=== PATIENT | female | born 1960 | race African-American/Black ===

== ENCOUNTER 2025-03-11 16:13 | Inpatient (IN) | payer MEDICAID ==
[~2025-03-11] VITALS: Ht 154.9 cm; Wt 131.3 kg
[~2025-03-11 16:13] MED LIST: GENOVIA; OXYCODONE
--- NOTE | 2025-03-11 16:28 | ED.PDOC ---
SOB-HPI HPI Comments 64y F who presents to the ED via EMS for chief complaint of shortness of breath. EMS states pt was called to the scene after pt was having shortness of breath for the past 1x week with exacerbation of her flu-like symptoms including cough, congestion with green phlegm, fever and chills. Pt called after pt despite using her home nebulizer, pt was still short of breath. EMS arrived on scene and noted pt had vitals checked which noted pt 02 sat of 89% on room air and pt was given breathing treatment and placed on supplemental 02 and brought to the ED. Pt now in the ED, has noted 02 sat of 98% on 02 with duo neb treatment currently occuring. Pt in the ED,states she also also been having diarrhea. Pt in the ED, otherwise denies any other symptoms at this time. 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 CLERK Hx Family History Family History: Family hx of DM, Family hx of heart suzi Social History Smoker: Cigarettes Alcohol: Occasionally Drugs: Denies Drug Use Lives In: Home Constitutional: reports: fever; denies: chills, diaphoresis, fatigue, malaise, sweats, weakness, others EENTM: denies: blurred vision, double vision, ear bleeding, ear discharge, ear drainage, ear pain, ear ringing, eye pain, eye redness, hearing loss, mouth pain, mouth swelling, nasal discharge, nose bleeding, nose congestion, nose pain, photophobia, tearing, throat pain, throat swelling, voice changes, others Respiratory: reports: cough, shortness of breath; denies: hemoptysis, orthopnea, SOB at rest, SOB with excertion, stridor, wheezing, others Cardiovascular: denies: chest pain, dizzy spells, diaphoresis, Dyspnea on exertion, edema, irregular heart beat, left arm pain, lightheadedness, palpitations, PND, syncope, others Gastrointestinal: reports: diarrhea; denies: abdomen distended, abdominal pain, blood streaked bowels, constipated, dysphagia, difficulty swallowing, hematemesis, melena, nausea, poor appetite, poor fluid intake, rectal bleeding, rectal pain, vomiting, others Genitourinary: denies: abnormal vagina bleeding, burning, dyspareunia, dysuria, flank pain, frequency, hematuria, incontinence, pain, , vagina discharge, urgency, others Neurological: denies: dizziness, fainting, headache, left sided numbness, left sided weakness, numbness, paresthesia, pre-existing deficit, right sided numbness, right sided weakness, seizure, speech problems, tingling, tremors, weakness, others Musculoskeletal: denies: back pain, gout, joint pain, joint swelling, muscle pain, muscle stiffness, neck pain, others Integumetry: denies: bruises, change in color, change in hair/nails, dryness, laceration, lesions, lumps, rash, wounds, others Allergic/Immunocompromised: denies: Difficulty Healing, Frequent Infections, Hives, Itching, others Hematologic/Lymphatic: denies: anemia, blood clots, easy bleeding, easy bruising, swollen glands, others Endocrine: denies: excessive hunger, excessive sweating, excessive thirst, excessive urination, flushing, intolerance to cold, intolerance to heat, unexplained weight gain, unexplained weight loss, others Psychiatric: denies: anxiety, bipolar disorder, depression, hopeless, panic disorder, schizophrenia, sleepless, suicidal, others All Other Systems: Reviewed and Negative Physical Exam General Appearance: Moderate Distress HEENT: Normal ENT Inspection, Pharynx Normal, TMs Normal Neck: Full Range of Motion, Non-Tender, Normal, Normal Inspection Respiratory: Chest Non-Tender, Decreased Breath Sounds, No Accessory Muscle Use, Respiratory Distress, Wheezing Cardiovascular: No Edema, No JVD, No Murmur, No Gallop, Normal Peripheral Pulses, Regular Rate/Rhythm Breast Exam: Deferred Gastrointestinal: No Organomegaly, No Pulsatile Mass, Normal Bowel Sounds, Soft, Suprapubic, Tenderness Genitalia: Deferred Pelvic: Deferred Rectal: Deferred Extremities: No calf tenderness, Normal capillary refill, Normal inspection, Normal range of motion, Non-tender, No pedal edema Musculoskeletal : Apperance: Normal Neurologic: Alert, priest II-XII nml as Tested, Motor Weakness, Normal Affect, Normal Mood, No Sensory Deficits Cerebellar Function: Normal Reflexes: Normal Skin: Dry, Normal Color, Warm Lymphatic: No Adenopathy Was a procedure done? Was a procedure done?: No Differential Dx Differential Diagnosis: Bronchitis, CHF, COPD, Myocardial infarction, Pneumonia, Respiratory Distress, Pharyngitis, URI Comments Influenza A and B, COVID X-Ray, Labs, Meds, VS Vital Signs Date Time Temp Pulse Resp B/P (MAP) Pulse Ox O2 Delivery O2 Flow Rate FiO2 03/11/25 16:55 97.8 94 19 109/73 (85) 96 97.8 03/11/25 16:50 94 19 96 Room Air* 2 N/A Nasal Cannula* 03/11/25 16:42 20 93 Nasal Cannula* 3 32 03/11/25 16:23 98.0 98 24 115/81 98 98.0 Lab Test 03/11/25 18:05 03/11/25 17:40 03/11/25 17:25 03/11/25 16:34 Range/Units Influenza Type A Antigen Negative Negative Influenza Type B Antigen Negative Negative SARS-CoV-2 Antigen (Rapid) Negative NEGATIVE Urine Color Light-brown Yellow Urine Clarity Ex.turbid Clear Urine pH 7.0 5.0-9.0 Urine Specific [place] 1.022 1.001-1.035 Urine Protein Trace H Negative Urine Ketones Negative Negative Urine Blood 1+ H Negative /uL Urine Nitrite Negative Negative Urine Bilirubin Negative Negative Urine Urobilinogen Normal Negative mg/dL Urine Leukocyte Esterase 3+ Negative /uL Urine RBC 124 0 - 4 /hpf Urine WBC Clumps Present None Seen /hpf Urine Microscopic WBC 1400 H 0-5 /HPF Urine Squamous Epithelial Cells Few <5 /hpf Urine Bacteria None seen None Seen /hpf Urine Yeast (Budding) Loaded None Seen /hpf Urine Glucose 4+ H Normal mg/dL Troponin I High Sensitivity < 3 L < 3 L </=34 ng/L White Blood Count 8.4 4.4-10.8 10^3/uL Red Blood Count 5.23 H 4.0-5.20 10^6/uL Hemoglobin 16.7 H 12.2-16.2 g/dL Hematocrit 51.0 H 36.0-46.0 % Mean Corpuscular Volume 97.4 80.0-100.0 fL Mean Corpuscular Hemoglobin 31.8 28.0-32.0 pg Mean Corpuscular Hemoglobin Concent 32.7 32.0-36.0 g/dL Red Cell Distribution Width 14.5 H 11.8-14.3 % Platelet Count 234 140-450 10^3/uL Mean Platelet Volume 6.7 L 6.9-10.8 fL Neutrophils (%) (Auto) 62.4 37.0-80.0 % Lymphocytes (%) (Auto) 26.7 10.0-50.0 % Monocytes (%) (Auto) 8.8 0.0-12.0 % Eosinophils (%) (Auto) 1.6 0.0-7.0 % Basophils (%) (Auto) 0.5 0.0-2.0 % Neutrophils # (Auto) 5.2 1.6-8.6 10 ^3/uL Lymphocytes # (Auto) 2.2 0.4-5.4 10 ^3/uL Monocytes # (Auto) 0.7 0-1.3 10 ^3/uL Eosinophils # (Auto) 0.1 0-0.8 10 ^3/uL Basophils # (Auto) 0 0-0.2 10 ^3/uL Nucleated Red Blood Cells 0.0 % Sodium Level 135 L 136-145 mmol/L Potassium Level 4.6 3.5-5.1 mmol/L Chloride Level 102 98-107 mmol/L Carbon Dioxide Level 25 20-31 mmol/L Anion Gap 8 5-15 Blood Urea Nitrogen 8 L 9-23 mg/dL Creatinine 0.86 0.550-1.02 mg/dL Glomerular Filtration Rate Calc 75 >90 mL/min BUN/Creatinine Ratio 9.3 L 10.0-20.0 Serum Glucose 98 74-106 mg/dL Lactic Acid Level 1.2 0.4-2.0 mmol/L Calcium Level 9.7 8.7-10.4 mg/dL B-Type Natriuretic Peptide 5.34 0-100 pg/mL Current Medications Medications (Trade) Dose Ordered Sig/Katja Route Start Time Stop Time Status Last Admin Methylprednisolone Sodium Succinate (Solu Medrol) 125 mg ONCE ONCE IV 03/11/25 16:30 03/11/25 16:31 DC 03/11/25 17:47 Ipratropium Maxie (Atrovent Medneb) 1 mg ONCE ONCE N 03/11/25 16:30 03/11/25 16:31 DC 03/11/25 16:42 Albuterol (Ventolin Medneb) 10 mg ONCE ONCE N 03/11/25 16:30 03/11/25 16:31 DC 03/11/25 16:42 [facility] PROCEDURE(s): CXRP - CHEST PORTABLE IMPRESSION: Mild pulmonary vascular congestion. IV Hep-Lock was established. The patient was given Solu-Medrol 125 mg IV push The patient will also be given Lasix 40 mg IV push for the pulmonary vascular congestion The patient was given a continuous breathing treatment of albuterol and Atrovent. The lactic acid level is within normal limits. The patient's CBC is within normal limits The chemistry panel also is within normal limits The patient's urine test is positive for a significant UTI At this time, the patient is being admitted For the UTI, the patient was started on Levaquin IV piggyback Images Reviewed?: Images reviewed and evaluated by me Time of 1ST Reevaluation: 17:00 Reevaluation 1ST: Unchanged Patient Education/Counseling: Diagnosis, Treatment, Prognosis Family Education/Counseling: No Family Present SEPSIS Sepsis Screen Physician Orders Med Neb Initial Treatment (03/11/25 16:19) Chest Portable (03/11/25 16:19) Heplock Iv (03/11/25 16:19) Pulse Oximetry (03/11/25 16:19) Oxygen (03/11/25 16:19) Insurance Policy Issue Clerk (03/11/25 16:19) Blood Pressure (03/11/25 16:19) Electrocardigram (03/11/25 16:19) Blood Culture (03/11/25 16:19) Troponin-I Hs (03/11/25 19:19) Electrocardigram (03/11/25 17:19) Electrocardigram (03/11/25 19:19) Vital Signs Date Time Temp Pulse Resp B/P (MAP) Pulse Ox O2 Delivery O2 Flow Rate FiO2 03/11/25 16:55 97.8 94 19 109/73 (85) 96 97.8 03/11/25 16:50 94 19 96 Room Air* 2 N/A Nasal Cannula* 03/11/25 16:42 20 93 Nasal Cannula* 3 32 03/11/25 16:23 98.0 98 24 115/81 98 98.0 Laboratory Tests Test 03/11/25 16:34 Lactic Acid Level 1.2 mmol/L (0.4-2.0) White Blood Count 8.4 10^3/uL (4.4-10.8) Medications Medications Dose Ordered Sig/Katja Route Start Time Stop Time Status Last Admin Dose Admin Albuterol 10 mg ONCE ONCE [facility] 03/11/25 16:30 03/11/25 16:31 DC 03/11/25 16:42 Ipratropium Maxie 1 mg ONCE ONCE [facility] 03/11/25 16:30 03/11/25 16:31 DC 03/11/25 16:42 Methylprednisolone Sodium Succinate 125 mg ONCE ONCE IV 03/11/25 16:30 03/11/25 16:31 DC 03/11/25 17:47 Departure 1 Departure Time of Disposition: 18:57 Impression: Primary Impression: Acute respiratory distress Additional Impressions: UTI (urinary tract infection) Qualified Codes: N30.00 - Acute cystitis without hematuria COPD exacerbation Disposition: ADMITTED INPATIENT [facility]mit to: [facility] Condition: Fair Critical Care Note Critical Care Time?: Yes (45 min-critical care time only) Stability Stability form required: Yes Unstable for transfer: Telemetry monitoring (Telemetry monitoring required), ED Physician Assesment (Clinical assesment) Heart Score Heart Score: Heart Score Response (Comments) Value History N/A 0 EKG N/A 0 Age N/A 0 Risk Factors N/A 0 Troponin N/A 0 Total 0 I personally scribed for JOÃO SIMS MD ([email or web address]) on 03/11/25 at 16:28. Electronically submitted by Alirio Knox ([email or web address]). I personally scribed for JOÃO SIMS MD ([email or web address]) on 03/11/25 at 17:44. Electronically submitted by Alirio Knox ([email or web address]). JOÃO SIMS MD Mar 11, 2025 16:28
[2025-03-11] MEDS: IPRATROPIUM BROM 0.5 MG/2.5ML INH SOL HHN ONE (16:42)
[2025-03-11] MEDS: ALBUTEROL SULF 2.5 MG/0.5ML(0.5%) NEB SOLN HHN ONE (16:42)
[2025-03-11 16:50] VITALS: PULSE 94; RESP 19; O2SAT 96
[2025-03-11 17:07] LABS: Hematocrit 51.0 % (36.0-46.0); Hemoglobin 16.7 g/dL (12.2-16.2); Mean Corpuscular Hemoglobin 31.8 pg (28.0-32.0); Mean Corpuscular Volume 97.4 fL (80.0-100.0); Nucleated Red Blood Cells % 0.0 %
[2025-03-11 17:14] LABS: Chloride 102 mmol/L (98-107); Potassium 4.6 mmol/L (3.5-5.1)
[2025-03-11 17:15] LABS: Anion Gap 8 (5-15); Calcium 9.7 mg/dL (8.7-10.4); Carbon Dioxide 25 mmol/L (20-31)
--- NOTE | 2025-03-11 17:15 | DVH ---
CHEST RADIOGRAPH INDICATION: sob TECHNIQUE: Single frontal view of the chest was obtained COMPARISON: None FINDINGS: Lines and Tubes: None Lungs: No focal consolidation. Mild interstitial prominence. Pleura: No effusion. No pneumothorax. Cardiomediastinal contours: borderline cardiomegaly Bones: No acute osseous abnormality. IMPRESSION: Mild pulmonary vascular congestion.
[2025-03-11 17:20] LABS: BUN/Creatinine Ratio 9.3 (10.0-20.0); Glucose 98 mg/dL (74-106)
[2025-03-11 17:26] LABS: Blood Urea Nitrogen 8 mg/dL (9-23); Sodium 135 mmol/L (136-145)
[2025-03-11] MEDS: methylPREDNISolone SOD SUCC 125 MG/2 ML VL IV ONE (17:47)
[2025-03-11 18:24] LABS: Urine Budding Yeast LOADED /hpf (None Seen); Urine Protein, UAD TRACE (Negative); Urine WBC Clumps PRESENT /hpf (None Seen)
[2025-03-11 18:37] LABS: COVID19 ANTIGEN SOFIA FIA NEGATIVE (NEGATIVE)
[2025-03-11] MEDS ORDERED: DOXYCYCLINE 100MG/100ML 100 ML IV SCH (19:45)
[2025-03-11] MEDS ORDERED: ACETAMINOPHEN 325 MG TAB PO ONE (19:45)
[2025-03-11] MEDS: MORPHINE SULFATE 4 MG/ML SYR/VIAL IV ONE (19:48)
[2025-03-11] MEDS: ONDANSETRON HCL 4 MG/2 ML VIAL IV ONE (19:49)
--- NOTE | 2025-03-11 19:55 | DVHHPRES ---
History of Present Illness Resident Creating Document: RENE ROJO RESIDENT History of Present Illness 64-year-old female with past medical history of asthma, COPD, questionable CHF, stroke, diabetes mellitus, hyperlipidemia and hypertension presented with complaints of shortness of breath. Patient mentioned that for past one week she had flu-like symptoms initially that included cough, fever, chills. And for last few days patient can not lay flat because of shortness of breath. She does not use oxygen at home. She describes cough as fat, with greenish colored sputum. Patient uses nebulizer at home and despite using nebulizer 2 times every 15 minutes she did not have improvement in his symptoms that prompted her to come to the ED. She also mentioned chest pressure as someone sitting on her chest, pressure-like, radiating to jaw, not radiating to arms. She also mentioned of epigastric pain and bruise on the left flank. She denied any recent trauma. Patient mentioned associated headache. She also denied any complaints of fever today. Past medical history Asthma, COPD, questionable CHF, stroke, diabetes mellitus, hyperlipidemia and hypertension Past surgical history No recent surgery Family history History of diabetes and heart disease, hypertension, CKD Social history Patient smokes 2-5 cigarettes a day for last 10 years, quit one week ago Denied alcohol, marijuana or any other drug intake Lives with caregiver Medication history Hydroxyzine Gabapentin Omeprazole Simvastatin Benazepril Aspirin Oxycodone Potassium chloride Hydrochlorothiazide Jardiance Ozempic Duloxetine Magnesium oxide Allergic history Acetaminophen Hydrocodone Nuts Review of Systems Review of Systems As described in the HPI Allergies: Coded Allergies: Codeine (Verified Allergy, Severe, 03/12/25) [place] Hydrocodone (Verified Allergy, Severe, 02/28/15) Uncoded Allergies: NUTS (Allergy, Unknown, 02/28/15) Medications Current Medications Medications Dose Ordered Sig/Katja Route Start Time Stop Time Status Last Admin Dose Admin Methylprednisolone Sodium Succinate 40 mg BID IV 03/11/25 22:00 Albuterol 2.5 mg Q4HPRN PRN NEB 03/11/25 19:45 Ipratropium [place] 0.5 mg Q4HPRN PRN NEB 03/11/25 19:45 Ceftriaxone Sodium 50 ml @ 100 mls/hr DAILY@09 IV 03/12/25 09:00 Doxycycline Hyclate 100 ml @ 50 mls/hr Q12H IV 03/11/25 19:45 Exam Vital Signs Vital Signs Date Time Temp Pulse Resp B/P (MAP) Pulse Ox O2 Delivery O2 Flow Rate FiO2 03/11/25 19:48 103 21 111/80 03/11/25 18:55 94 03/11/25 16:55 97.8 97.8 03/11/25 16:50 Room Air* 2 N/A Nasal Cannula* Exam Examination General Appearance: Alert, Oriented X3, Cooperative, No acute distress HEENT: EOMI Respiratory: Bilateral expiratory wheezes Cardiovascular: Regular rate, Normal S1, Normal S2 Abdominal: Normal bowel sounds Extremities: No cyanosis, No edema, Normal pulses, No tenderness/swelling Skin: No rashes, No breakdown Neuro: Normal speech and tone Labs/Xrays Labs Test 03/11/25 19:48 03/11/25 18:05 03/11/25 17:40 03/11/25 16:34 Range/Units Influenza Type A Antigen Negative Negative Influenza Type B Antigen Negative Negative SARS-CoV-2 Antigen (Rapid) Negative NEGATIVE Urine Color Light-brown Yellow Urine Clarity Ex.turbid Clear Urine pH 7.0 5.0-9.0 Urine Specific [place] 1.022 1.001-1.035 Urine Protein Trace H Negative Urine Ketones Negative Negative Urine Blood 1+ H Negative /uL Urine Nitrite Negative Negative Urine Bilirubin Negative Negative Urine Urobilinogen Normal Negative mg/dL Urine Leukocyte Esterase 3+ Negative /uL Urine RBC 124 0 - 4 /hpf Urine WBC Clumps Present None Seen /hpf Urine Microscopic WBC 1400 H 0-5 /HPF Urine Squamous Epithelial Cells Few <5 /hpf Urine Bacteria None seen None Seen /hpf Urine Yeast (Budding) Loaded None Seen /hpf Urine Glucose 4+ H Normal mg/dL White Blood Count 8.4 4.4-10.8 10^3/uL Red Blood Count 5.23 H 4.0-5.20 10^6/uL Hemoglobin 16.7 H 12.2-16.2 g/dL Hematocrit 51.0 H 36.0-46.0 % Mean Corpuscular Volume 97.4 80.0-100.0 fL Mean Corpuscular Hemoglobin 31.8 28.0-32.0 pg Mean Corpuscular Hemoglobin Concent 32.7 32.0-36.0 g/dL Red Cell Distribution Width 14.5 H 11.8-14.3 % Platelet Count 234 140-450 10^3/uL Mean Platelet Volume 6.7 L 6.9-10.8 fL Neutrophils (%) (Auto) 62.4 37.0-80.0 % Lymphocytes (%) (Auto) 26.7 10.0-50.0 % Monocytes (%) (Auto) 8.8 0.0-12.0 % Eosinophils (%) (Auto) 1.6 0.0-7.0 % Basophils (%) (Auto) 0.5 0.0-2.0 % Neutrophils # (Auto) 5.2 1.6-8.6 10 ^3/uL Lymphocytes # (Auto) 2.2 0.4-5.4 10 ^3/uL Monocytes # (Auto) 0.7 0-1.3 10 ^3/uL Eosinophils # (Auto) 0.1 0-0.8 10 ^3/uL Basophils # (Auto) 0 0-0.2 10 ^3/uL Nucleated Red Blood Cells 0.0 % Sodium Level 135 L 136-145 mmol/L Potassium Level 4.6 3.5-5.1 mmol/L Chloride Level 102 98-107 mmol/L Carbon Dioxide Level 25 20-31 mmol/L Anion Gap 8 5-15 Blood Urea Nitrogen 8 L 9-23 mg/dL Creatinine 0.86 0.550-1.02 mg/dL Glomerular Filtration Rate Calc 75 >90 mL/min BUN/Creatinine Ratio 9.3 L 10.0-20.0 Serum Glucose 98 74-106 mg/dL Lactic Acid Level 1.2 0.4-2.0 mmol/L Calcium Level 9.7 8.7-10.4 mg/dL SEPSIS Sepsis Screen Date sepsis recognized/suspect: Mar 11, 2025 Time Sepsis recognized/suspect: 1649 Recent Procedure: No On Antibiotic Therapy: No Respiratory Rate >20: Yes Heart Rate >90: Yes Temp<36 C (96.8 F) or >38.3 C: No SBP <90 or MAP <65 mmHG: No New Acute Mental Status Change: No Is the patient on CPAP, BIPAP,: No Physician Orders Med Neb Initial Treatment (03/11/25 16:19) Chest Portable (03/11/25 16:19) Heplock Iv (03/11/25 16:19) Pulse Oximetry (03/11/25 16:19) Oxygen (03/11/25 16:19) Freelance Art Director (03/11/25 16:19) Blood Pressure (03/11/25 16:19) Electrocardigram (03/11/25 16:19) Blood Culture (03/11/25 16:19) Electrocardigram (03/11/25 17:19) Electrocardigram (03/11/25 19:19) Levofloxacin 500mg (Levaquin 500mg/ 100m (03/11/25 19:00) Admit (03/11/25:33) Oxygen By Nasal Cannula (03/11/25:33) Stat Ekg For Chest Pain (03/11/25:33) Notify Of Changes From Base (03/11/25:) Hospice Massage Therapist For 24 Hours (03/11/25:33) Emergency Dysrhythmia Protocol (03/11/25:) Rhythm Strips Once Every Shift (03/11/25:33) Methylprednisolone Sod Succ (Solu Medrol (03/11/25 22:00) Electrocardigram (03/11/25:33) Troponin-I Hs (03/11/25:33) B-Type Natriuretic Peptide (03/11/25:33) Echo 2d Mode Cardiac Dop (03/11/25:) D-Dimer (03/11/25:33) Rapid Influenza A&B (03/11/25:33) Mrsa Screen (03/11/25:33) Acetaminophen Tablet (Tylenol Tablet) (03/11/25 19:45) Albuterol Medneb (Ventolin Medneb) (03/11/25 19:45) Ipratropium Medneb (Atrovent Medneb) (03/11/25 19:45) Ceftriaxone 1gm/50ml (Rocephin) (03/11/25 19:45) Ceftriaxone 1gm/50ml (Rocephin) (03/12/25 09:00) Doxycycline 100mg/100ml (Vibramycin) (03/11/25 19:45) Urine Bacterial Culture (03/11/25 19:52) Vital Signs Date Time Temp Pulse Resp B/P (MAP) Pulse Ox O2 Delivery O2 Flow Rate FiO2 03/11/25 19:48 103 21 111/80 03/11/25 18:55 104 25 102/58 (73) 94 03/11/25 16:55 97.8 94 19 109/73 (85) 96 97.8 03/11/25 16:50 94 19 96 Room Air* 2 N/A Nasal Cannula* 03/11/25 16:42 20 93 Nasal Cannula* 3 32 03/11/25 16:23 98.0 98 24 115/81 98 98.0 Laboratory Tests Test 03/11/25 16:34 Lactic Acid Level 1.2 mmol/L (0.4-2.0) White Blood Count 8.4 10^3/uL (4.4-10.8) Medications Medications Dose Ordered Sig/Katja Route Start Time Stop Time Status Last Admin Dose Admin Albuterol 10 mg ONCE ONCE [facility] 03/11/25 16:30 03/11/25 16:31 DC 03/11/25 16:42 10 MG Ipratropium [place] 1 mg ONCE ONCE [facility] 03/11/25 16:30 03/11/25 16:31 DC 03/11/25 16:42 1 MG Methylprednisolone Sodium Succinate 125 mg ONCE ONCE IV 03/11/25 16:30 03/11/25 16:31 DC 03/11/25 17:47 125 MG Morphine Sulfate 4 mg ONCE ONCE IV 03/11/25 19:45 03/11/25 19:46 DC 03/11/25 19:48 4 MG Ondansetron HCl 4 mg ONCE ONCE IV 03/11/25 19:45 03/11/25 19:46 DC 03/11/25 19:49 4 MG Assessment/Plan Assessment/Plan Assessment and Plan # Acute hypoxic resp failure due to COPD exacerbation # COPD exacerbation # Community Acquired Pneumonia Gram positive/Negative # elevated D-dimer tachycardia, tachypnea ( wells score 3) -ipratropium/albuterol p.r.n. Methylprednisolone 40 mg b.i.d. IV, switch to oral prednisone tomorrow Culture including sputum culture and blood culture IV ceftriaxone and doxycycline MRSA screen CT angio chest and lower extremity Doppler # history of stroke # bed-bound due to stroke # DVT prophylaxis -Low dose Lovenox 40mg SC daily -Aspirin, atorvastatin # diabetes mellitus type 2 Keep blood glucose between 140-180 Accu-Cheks q.6/a.c. HS Sliding scale insulin Diabetic diet: Consistent carbohydrate # questionable CHF Echo IV Lasix Resume home meds # Hypertension Resume home med Code status discussed with the patient for greater than 21 minutes Full code Case discussion with Dr. Martinez Plan discussed with: Patient, Other My Orders Orders - RENE ROJO RESIDENT Procedure Category Date Status Time Admit ADMIT 03/11/25 Transmitted 19:33 Oxygen By Nasal RT 03/11/25 Transmitted Cannula 19:33 Stat Ekg For Chest JONATHAN 03/11/25 In Process Pain 19:33 Notify Md Of Changes [facility] 03/11/25 In Process From Base 19:33 Hospice Massage Therapist For JONATHAN 03/11/25 In Process 24 Hours 19:33 Emergency Dysrhythmia JONATHAN 03/11/25 In Process Protocol 19:33 Rhythm Strips Once [facility] 03/11/25 In Process Every Shift 19:33 Methylprednisolone PHA 03/11/25 In Process Sod Succ (Solu Medrol 22:00 Electrocardigram EKG 03/11/25 Logged 19:33 Troponin-I Hs LAB 03/11/25 In Process 19:33 B-Type Natriuretic LAB 03/11/25 In Process Peptide 19:33 Echo 2d Mode Cardiac US 03/11/25 Logged DOP 19:33 D-Dimer LAB 03/11/25 In Process 19:33 Rapid Influenza A&B LAB 03/11/25 Logged 19:33 Mrsa Screen [facility] 03/11/25 Logged 19:33 Acetaminophen Tablet PHA 03/11/25 Logged (Tylenol Tablet) 19:45 Albuterol Medneb PHA 03/11/25 In Process (Ventolin Medneb) 19:45 Ipratropium Medneb PHA 03/11/25 In Process (Atrovent Medneb) 19:45 Ceftriaxone 1gm/50ml PHA 03/11/25 In Process (Rocephin) 19:45 Ceftriaxone 1gm/50ml PHA 03/12/25 In Process (Rocephin) 09:00 Doxycycline PHA 03/11/25 In Process 100mg/100ml 19:45 Urine Bacterial [facility] 03/11/25 Transmitted Culture 19:52 Visit Coding STANDARD RES Billing Provider: REINALDO MARTINEZ MD Date of Service if different f: Mar 11, 2025 Common Visit Codes: 47239-CMWJNTT INP/OBS CARE (HIGH) Secondary Visit Codes: 66025-IPHZTEBZ CARE PLAN 30 MINUTES RENE ROJO RESIDENT Mar 11, 2025 19:55
[2025-03-11] MEDS ORDERED: DEXTROSE (50%) 50ML SYRG IV PRN (20:15)
[2025-03-11 20:27] LABS: Opiate Scree,Urine Neg (NEGATIVE); Phencyclidine Screen, Urine Neg (NEGATIVE)
[2025-03-11 20:30] LABS: Amphetamine Screen, Urine Neg (NEGATIVE); Barbiturate Scree,Urine Neg (NEGATIVE); Benzodiazephine Screen, Urine Neg (NEGATIVE); Cannabinoid Screen, Urine Neg (NEGATIVE); Cocaine Screen, Urine Neg (NEGATIVE)
[2025-03-11 20:30] LABS: Alanine Aminotransferase 23.0 U/L (7-40); Albumin 4.4 g/dL (3.2-4.8); Alkaline Phosphatase 75.0 U/L (46-116); Bilirubin, Direct 0.2 mg/dL (<0.3); Bilirubin, Total 0.6 mg/dL (0.2-1.0); Total Protein 6.8 g/dL (5.7-8.2)
[2025-03-11] MEDS: FUROSEMIDE 40 MG/4 ML VIAL IV ONE (20:36)
[2025-03-11] MEDS: PANTOPRAZOLE 40 MG/10 ML VIAL INJ IV ONE (20:37)
--- NOTE | 2025-03-11 20:58 | DVH ---
EXAM: CT CT AB PEL WO CON-NO ORAL OR IV HISTORY: flank tendernesws COMPARISON STUDY: None TECHNIQUE: Multidetector CT of the abdomen and pelvis was performed from lung bases to pubic symphysis. Imaging was performed without IV contrast. Axial, coronal, and sagittal multiplanar reformats were obtained from the axial data set by the technologist. RADIATION DOSE: CTDI vol 27.9 mGy. DLP 1406.07 mGy.cm FINDINGS: Limited evaluation of the solid organs in the absence of IV contrast. Lungs: Dependent atelectatic changes. Liver: Unremarkable. Spleen: Unremarkable. Pancreas: Unremarkable. Gallbladder: Unremarkable. Adrenals: Unremarkable Kidneys: Unremarkable. Pelvic Viscera: Unremarkable. Vasculature: Mild atherosclerotic vascular calcifications. Retroperitoneum: Unremarkable. Bowel: Colonic diverticulosis without CT evidence of diverticulitis. No bowel obstruction. The appendix is normal. Musculoskeletal: Grade 1 anterolisthesis of L4 on L5. 3.0 cm mixed sclerotic density lesion within the right proximal femur. Soft tissues: Unremarkable IMPRESSION: 1. No acute abdominopelvic abnormality. 2. 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 3. Additional incidental findings as detailed.
--- NOTE | 2025-03-11 21:24 | DVH ---
Bilateral lower extremity venous duplex CLINICAL HISTORY: rule out dvt COMPARISON: None TECHNIQUE: Duplex Doppler evaluation of the deep venous systems of both lower extremities from the common femoral veins to the popliteal veins including color Doppler and spectral/pulsed waveform analysis was performed. FINDINGS: RIGHT SIDE: The common femoral vein demonstrates appropriate compressibility and waveform variability. There is compressibility/patency of the great saphenous vein at the proximal thigh. The femoral vein demonstrates appropriate compressibility and waveform variability. The deep femoral vein demonstrates appropriate compressibility and waveform variability. The popliteal vein demonstrates appropriate compressibility and waveform variability. There is normal compressibility at the tibioperoneal trunk. LEFT SIDE: The common femoral vein demonstrates appropriate compressibility and waveform variability. There is compressibility/patency of the great saphenous vein at the proximal thigh. The femoral vein demonstrates appropriate compressibility and waveform variability. The deep femoral vein demonstrates appropriate compressibility and waveform variability. The popliteal vein demonstrates appropriate compressibility and waveform variability. There is normal compressibility at the tibioperoneal trunk. IMPRESSION: No right or left femoropopliteal venous thrombosis.
--- NOTE | 2025-03-11 21:35 | DVH ---
EXAM: CT HEAD WITHOUT CONTRAST INDICATION: headache COMPARISON: None TECHNIQUE: CT of the head without intravenous contrast. Radiation Dose Information: CT Dose: CTDI volume is 65 mGy. Dose-length product is 1150 mGy*cm The dose indicators for CT are the volume Computed Tomography (CT) Dose Index (CTDIvol) and the Dose Length Product (DLP), and are measured in units of mGy and mGy-cm, respectively. These indicators are not patient dose, but values generated from the CT scanner acquisition factors. The report includes radiation exposure data for exposures received during this examination. FINDINGS: The ventricles and sulci are normal in size and configuration for the patient's age. There is no mass-effect, hemorrhage, midline shift, or abnormal extra-axial fluid collection visible. No calvarial fracture. Left sphenoid sinus partial opacification. Mastoid air cells are clear. IMPRESSION: No acute intracranial hemorrhage or mass effect.
[2025-03-11 21:36] VITALS: BP_SYST 107; BP_SYST 134; BP_DIAS 75; BP_DIAS 83; PULSE 105; PULSE 111; RESP 20; RESP 21; TEMP 98; TEMP 98.8; O2SAT 90; O2SAT 92
--- NOTE | 2025-03-11 22:04 | DVH ---
EXAM: CT CT ANGIO CHEST CONTRAST Reason for study/ Clinical History: elevated ddimer COMPARISON STUDY: XY CHEST PORTABLE on DOS: 03/11/25 Exam Date: 03/11/2025 09:10 PM Radiation Dose Information: CT Dose: CTDI volume is 27.86 mGy. Dose-length product is 1015.35 mGy*cm TECHNIQUE: Multidetector CTA of the chest was performed of the chest with intravenous contrast. PULMONARY ANGIOGRAPHY PROTOCOL was utilized using a bolus- tracking technique centered on the main pulmonary artery. Axial, coronal and sagittal multiplanar and MIP reformats were performed. FINDINGS: Lower neck: Unremarkable. Lungs and Pleura: No consolidation or suspicious pulmonary nodules. No pleural effusions. Bibasilar atelectasis. Lymph nodes: No mediastinal, hilar, or axillary lymphadenopathy. Cardiovascular and Mediastinum: No significant pericardial effusion. Scattered coronary calcifications. Pulmonary arteries: Limited evaluation for segmental and subsegmental arteries due to suboptimal opacification and motion degradation. No central pulmonary emboli. Enlarged main pulmonary artery suggestive of pulmonary arterial hypertension. Osseous and soft tissues: No suspicious osseous lesions. Multilevel degenerative changes of the thoracic spine. Old right rib fractures. Upper abdomen: No acute abnormality in the visualized upper abdomen. IMPRESSION: Limited evaluation for segmental and subsegmental arteries due to suboptimal opacification and motion degradation. No central pulmonary emboli. Enlarged main pulmonary artery suggestive of pulmonary arterial hypertension.
[2025-03-11 22:26] VITALS: BP 111/80; PULSE 103; RESP 20; TEMP 98.5; O2SAT 95
[2025-03-11 22:50] VITALS: PULSE 118; RESP 20; O2SAT 86
[2025-03-11 22:56] VITALS: O2SAT 94
[2025-03-11] MEDS: ALBUTEROL SULF 2.5 MG/0.5ML(0.5%) NEB SOLN NEB PRN (22:56)
[2025-03-11] MEDS: IPRATROPIUM BROM 0.5 MG/2.5ML INH SOL NEB PRN (22:56)
[2025-03-11 22:57] VITALS: PULSE 116; RESP 20; O2SAT 94; O2SAT 96
--- NOTE | 2025-03-11 23:22 | ECG ---
[facility] Test Date: 2025-03-11 Test Time: 19:25:05 Pat Name: CHAYITO DEUTSCH Department: ED Room: 0293 Gender: F Rv Service Technician: : 1960 Requested By: JOÃO SIMS Order Number: [id number] Reading MD: Kumar May Measurements Intervals [place] Rate: 106 P: 70 WV: 149 QRS: -17 QRSD: 68 T: 66 QT: 338 QTc: 449 Interpretive Statements Sinus tachycardia Probable left atrial enlargement Borderline left axis deviation Low voltage, extremity leads Consider anterior infarct Electronically Signed On 03-18-2025 8:22:11 PST by Kumar May Please click the below link to view image of tracing.
[2025-03-12] VITALS (13 sets, daily range): BP systolic 107–142; BP diastolic 75–107; PULSE 88–114; RESP 16–20; TEMP 97.6–98.1; O2SAT 90–100
[2025-03-12] MEDS: methylPREDNISolone SOD SUCC 40 MG/ML VL IV SCH (00:04)
[2025-03-12] MEDS: ATORVASTATIN 20 MG TAB PO SCH (00:04)
[2025-03-12] MEDS: DOXYCYCLINE 100MG/100ML 100 ML IV SCH (00:05)
[2025-03-12] MEDS: ACCU-CHEK COMFORT CURVE STRIP VI SCH ×2 (00:05→06:14)
[2025-03-12] MEDS: InsuLIN REG 1unit/0.01ml Soln (100units/ml) SC SCH ×2 (00:24→06:21)
[2025-03-12] MEDS ORDERED: DEXTROSE (50%) 50ML SYRG IV PRN (01:00)
[2025-03-12 05:41] LABS: Hematocrit 50.2 % (36.0-46.0); Hemoglobin 16.9 g/dL (12.2-16.2); Mean Corpuscular Hemoglobin 32.6 pg (28.0-32.0); Mean Corpuscular Volume 96.8 fL (80.0-100.0); Nucleated Red Blood Cells % 0.1 %
[2025-03-12 06:00] LABS: Alanine Aminotransferase 20 U/L (7-40); Albumin 4.5 g/dL (3.2-4.8); Alkaline Phosphatase 73 U/L (46-116); Anion Gap 11 (5-15); BUN/Creatinine Ratio 15.7 (10.0-20.0); Blood Urea Nitrogen 17 mg/dL (9-23); Calcium 9.8 mg/dL (8.7-10.4); Carbon Dioxide 28 mmol/L (20-31); Magnesium 2.3 mg/dL (1.6-2.6); Potassium 4.6 mmol/L (3.5-5.1); Total Protein 7.4 g/dL (5.7-8.2)
--- NOTE | 2025-03-12 06:00 | DVH ---
CHEST RADIOGRAPH Indication: sob Technique: Single frontal view of the chest was obtained COMPARISON: CT CT ANGIO CHEST CONTRAST on DOS: 03/11/25, XY CHEST PORTABLE on DOS: 03/11/25 FINDINGS: Lines and Tubes: None Lungs: Mild pulmonary vascular congestion. Interval improvement in aeration of the right lower lobe. Pleura: No effusion.No pneumothorax. Cardiomediastinal contours: Unremarkable Bones: Unremarkable IMPRESSION: Mild pulmonary vascular congestion. Interval improvement in aeration of the right lower lobe.
[2025-03-12 06:01] LABS: Bilirubin, Total 0.4 mg/dL (0.2-1.0)
[2025-03-12 06:23] LABS: Chloride 95 mmol/L (98-107); Glucose 268 mg/dL (74-106); Sodium 134 mmol/L (136-145)
[2025-03-12] MEDS: IOHEXOL 350 MG/ML 100ML IJ ONE (08:34)
[2025-03-12 09:27] LABS: INR 1.06 (0.9-1.15); Partial Thromboplastin Time 31.5 SEC (24.5-34.5); Prothrombin Time 11.2 sec (9.3-11.8)
[2025-03-12] MEDS: ASPirin-EC 81 mg tab PO SCH (09:49)
[2025-03-12] MEDS: ENOXAPARIN SOD 40 MG/0.4 ML SYRINGE SC SCH (09:50)
[2025-03-12] MEDS: PANTOPRAZOLE 40 MG/10 ML VIAL INJ IV SCH (09:50)
[2025-03-12] MEDS: FUROSEMIDE 40 MG/4 ML VIAL IV ONE (11:58)
[2025-03-12] MEDS: ALBUTEROL SULF 2.5 MG/0.5ML(0.5%) NEB SOLN NEB SCH (12:02)
[2025-03-12] MEDS: IPRATROPIUM BROM 0.5 MG/2.5ML INH SOL NEB SCH (12:03)
--- NOTE | 2025-03-12 14:08 | DVHPNRES ---
Progress Note Date Seen: Mar 12, 2025 Resident Creating Document: MAYO CONRAD RESIDENT Medical Necessity Reason Pt with a Central, PICC or Fol: No Subjective Review of Systems Shirley Del Toro Is a 64-year-old female with past medical history of asthma, COPD, CVA in 2019 with right-sided weakness, hey-eeoopjc-iwlvtcpra type 2 diabetes mellitus , Hyperlipidemia, hypertension, questionable CHF, who came to the hospital with chief complaints of shortness of breath since 2 weeks. Patient states she can not lay flat since 2 weeks, has increased cough with greenish- colored sputum , sore throat since 2 weeks. Patient states that 1 week ago a friend had flu-like symptoms including cough fever chills. patient uses albuterol nebulizer at home. Despite using nebulizer 2 times every 15 minutes she did not improve and had to come to the ED. patient did mention chest pressure-like someone was sitting on her chest, pressure-like pain which was 5/10 in intensity, not radiating, squeezing type of pain. Patient also mentioned epigastric pain and left flank tenderness with bruise present which has increased in size over the past 4 days. Patient denies any trauma or fall to the area. Patient mentioned having fever yesterday, and diarrhea for 1 day. Patient also complains of burning sensation when she pees, frequency, dysuria and pressure in suprapubic region. Patient denies any home oxygen use. as walker at home. Past surgical history: Denies family history: Reviewed noncontributory Personal history: Patient smokes 5 cigarettes a day for the last 10 years, quit 2 weeks ago. Denies any alcohol or other drug use. Lives with: Caregiver Allergic to: Nuts, hydrocodone, codeine, acetaminophen Medication history: Hydroxyzine , Gabapentin , Omeprazole, Simvastatin, Benazepril , Aspirin ,Oxycodone, Potassium chloride, Hydrochlorothiazide, Jardiance, Ozempic, Duloxetine Magnesium oxide, Percocet 10 03/12/2024: Patient seen at bedside. Patient does complain of left-sided flank pain with bruise present. Patient has crackles on auscultation. Complains of sore throat and shortness of breath. Objective vital signs Vital Sign Date Time Temp Pulse Resp B/P (MAP) Pulse Ox O2 Delivery O2 Flow Rate FiO2 03/12/25 12:40 97.9 91 20 113/85 94 93 97.9 03/12/25 12:03 Nasal Cannula 3.0 03/12/25 12:03 32 Total Intake and Output 03/11/25 03/11/25 03/12/25 15:00 23:00 07:00 Intake Total 550 ml Balance 550 ml medications Current Medications Medications Dose Ordered Sig/Katja Route Start Time Stop Time Status Last Admin Dose Admin Ceftriaxone Sodium 50 ml @ 100 mls/hr Q24H IV 03/12/25 00:00 03/12/25 02:13 100 MLS/HR Dextrose 50 ml UD PRN IV 03/11/25 20:15 Atorvastatin Calcium 40 mg HS PO 03/11/25 22:00 03/12/25 00:04 40 MG Doxycycline Hyclate 100 ml @ 50 mls/hr Q12H IV 03/11/25 23:45 03/12/25 11:58 50 MLS/HR Diagnostic Test (Pha) 1 strip ACHS 03/12/25 07:00 03/12/25 11:31 1 STRIP Insulin Human Regular AC SC 03/12/25 07:00 03/12/25 11:57 12 UNITS Dextrose 50 ml UD PRN IV 03/12/25 01:00 Enoxaparin Sodium 40 mg DAILY SC 03/12/25 10:00 03/12/25 09:50 40 MG Aspirin 81 mg DAILY PO 03/12/25 10:00 03/12/25 09:49 81 MG Albuterol 2.5 mg Q6HR NEB 03/12/25 12:00 03/12/25 12:02 2.5 MG Ipratropium [place] 0.5 mg Q6HR NEB 03/12/25 12:00 03/12/25 12:03 0.5 MG Pantoprazole Sodium 40 mg DAILY@0600 PO 03/13/25 06:00 Furosemide 40 mg DAILY IV 03/13/25 10:00 Insulin Glargine 20 units HS SC 03/12/25 22:00 Prednisone 40 mg DAILY PO 03/13/25 10:00 Oxycodone/ Acetaminophen 2 tab TID PO 03/12/25 22:00 Duloxetine HCl 60 mg DAILY PO 03/13/25 10:00 Quetiapine Fumarate 100 mg HS PO 03/12/25 22:00 Examination General: Patient alert and oriented in person, place and time. Patient following commands. HEENT: Normocephalic, atraumatic, moist mucous membranes, JVD elevated Respiratory/pulmonary: bilateral crackles, expiratory wheezes Cardiovascular: Normal heart sounds S1 and S2 with no associated murmurs Abdomen: Abdomen nondistended, there is no pain to palpation in any of the abdominal quadrants, no palpable masses. Morbid obesity Extremities: There is no peripheral edema present at the lower extremities. Peripheral Pulses: 3+ Radial (R). 3+ Radial (L). 3+ Dorsalis pedis (R). 3+ Dorsalis pedis(L) Skin: left flank bruise Neurological: Intact cranial nerves with no focal neurologic deficits, right side weakness in right upper and lower extremity laboratory and microbiology Laboratory Tests 03/12/25 05:17 Test 03/12/25 05:17 Range/Units Serum Glucose 268 H 74-106 mg/dL Microbiology Date/Time Source Procedure Growth Status 03/11/25 17:40 Voided Urine Urine Culture - Preliminary Resulted Problem List/Assessment/Plan Problem List/Assessment/Plan # Acute hypoxic respiratory failure due to COPD exacerbation # COPD exacerbation # Community Acquired Pneumonia Gram positive/Negative -ipratropium/albuterol p.r.n. -Methylprednisolone 40 mg b.i.d. IV, switch to oral prednisone tomorrow -Culture including sputum culture and blood culture -IV ceftriaxone and doxycycline -MRSA screen -CT angio chest and lower extremity Doppler - wells score 3 - V/Q scan # history of stroke -Low dose Lovenox 40mg SC daily -Aspirin, atorvastatin # diabetes mellitus type 2 Keep blood glucose between 140-180 Accu-Cheks q.6/a.c. HS Sliding scale insulin # possible obstructive sleep apnea - BiPAP at night # questionable CHF Echo pending IV Lasix Resume home meds # Hypertension Resume home med # morbid obesity BMI 50.5 - patient counseled on diet, lifestyle modifications PPI prophylaxis: Protonix DVT prophylaxis: Lovenox Diabetic diet: Consistent carbohydrate Goals of care addressed with the patient for more than 27 minutes: Full code status Case discussed with Dr. Martinez , patient and nurse Plan discussed with: Patient My Orders My Orders Orders - MAYO CONRAD RESIDENT Procedure Category Date Status Time Discontinue Tele JONATHAN 03/12/25 In Process 12:11 Transfer Orders XFER 12/12/25 Transmitted 12:11 Visit Coding STANDARD RES Billing Provider: REINALDO MARTINEZ MD Date of Service if different f: Mar 12, 2025 Common Visit Codes: [id number] INP/OBS CARE(HIGH) MAYO CONRAD RESIDENT Mar 12, 2025 14:08
[2025-03-12] MEDS: OXYCODONE W/ ACETAMINOPHEN 5/325MG TABLET PO SCH (21:14)
[2025-03-12] MEDS: INSULIN LANTUS (GLARGINE) 1 /0.01ml (100units/ml) SC SCH (21:21)
--- NOTE | 2025-03-12 21:24 | DVHSR ---
APPROVED REPORT EXAM: LIMITED Two-dimensional and M-mode echocardiogram with Doppler and color Doppler. Blood Pressure: 115/82 mmHg INDICATION SOB RISK FACTORS Obesity: Height: 5'1, Weight: 300 DIMENSIONS LVDd 3.6 (3.8-5.7cm) LA (2D) 4.7 (1.9-4.0cm) Aortic Root 2.6 (2.0-3.7cm) LVDs 2.6 (2.5-4.0cm) LA (MM) (1.9-4.0cm) Aortic Cusp Exc 1.5 (1.5-2.0cm) EF (%) 55.0 (55-70%) Rt. Atrium 2.2 (1.9-4.0cm) Asc. Aorta cm IVSd 0.8 (0.7-1.1cm) RV (D) (1.8-2.4cm) PWd 0.9 (0.7-1.1cm) Mitral Valve Mitral Mitral Stenosis E/A ratio 0.0 2D MVA cm2 Aortic Valve Aortic Valve Aortic Stenosis LVOT Diameter 2.0 (1.8-2.4cm) Doppler ONEYDA cm2 Other Information Quality : Technically Limited Rhythm : Technically limited study due to patient position.body habitus. PT unable to move or turn, talking on the phone during exam. Conclusion LV EF IS 65% AND IS NORMAL NORMAL VALVES NORMAL RV FUNCTION NO EFFUSION
[2025-03-12] MEDS ORDERED: MELATONIN 5 MG TAB PO ONE (22:00)
[2025-03-12] MEDS ORDERED: InsuLIN REG 1unit/0.01ml Soln (100units/ml) SC SCH (22:00)
[2025-03-13] VITALS (15 sets, daily range): BP systolic 109–133; BP diastolic 73–87; PULSE 80–109; RESP 16–20; TEMP 97.1–98.3; O2SAT 90–100
[2025-03-13] MEDS: PANTOPRAZOLE 40 MG TAB PO SCH (06:09)
[2025-03-13 06:52] LABS: Hematocrit 46.4 % (36.0-46.0); Hemoglobin 15.4 g/dL (12.2-16.2); Mean Corpuscular Hemoglobin 32.0 pg (28.0-32.0); Mean Corpuscular Volume 96.5 fL (80.0-100.0); Nucleated Red Blood Cells % 0.1 %
[2025-03-13 07:06] LABS: Potassium 4.2 mmol/L (3.5-5.1)
[2025-03-13 07:07] LABS: Anion Gap 9 (5-15); Calcium 9.6 mg/dL (8.7-10.4); Carbon Dioxide 29 mmol/L (20-31)
[2025-03-13 07:12] LABS: BUN/Creatinine Ratio 13.7 (10.0-20.0); Blood Urea Nitrogen 13 mg/dL (9-23)
[2025-03-13 07:15] LABS: Chloride 96 mmol/L (98-107); Glucose 167 mg/dL (74-106); Sodium 134 mmol/L (136-145)
--- NOTE | 2025-03-13 07:57 | DVHPNRES ---
Progress Note Date Seen: Mar 13, 2025 Resident Creating Document: MAYO CONRAD RESIDENT Medical Necessity Reason Pt with a Central, PICC or Fol: No Subjective Review of Systems Shirley Del Toro Is a 64-year-old female with past medical history of asthma, COPD, CVA in 2019 with right-sided weakness, hab-ydzkuub-vqyggtfyk type 2 diabetes mellitus , Hyperlipidemia, hypertension, questionable CHF, who came to the hospital with chief complaints of shortness of breath since 2 weeks. Patient states she can not lay flat since 2 weeks, has increased cough with greenish- colored sputum , sore throat since 2 weeks. Patient states that 1 week ago a friend had flu-like symptoms including cough fever chills. patient uses albuterol nebulizer at home. Despite using nebulizer 2 times every 15 minutes she did not improve and had to come to the ED. patient did mention chest pressure-like someone was sitting on her chest, pressure-like pain which was 5/10 in intensity, not radiating, squeezing type of pain. Patient also mentioned epigastric pain and left flank tenderness with bruise present which has increased in size over the past 4 days. Patient denies any trauma or fall to the area. Patient mentioned having fever yesterday, and diarrhea for 1 day. Patient also complains of burning sensation when she pees, frequency, dysuria and pressure in suprapubic region. Patient denies any home oxygen use. as walker at home. Past surgical history: Denies family history: Reviewed noncontributory Personal history: Patient smokes 5 cigarettes a day for the last 10 years, quit 2 weeks ago. Denies any alcohol or other drug use. Lives with: Caregiver Allergic to: Nuts, hydrocodone, codeine, acetaminophen Medication history: Hydroxyzine , Gabapentin , Omeprazole, Simvastatin, Benazepril , Aspirin ,Oxycodone, Potassium chloride, Hydrochlorothiazide, Jardiance, Ozempic, Duloxetine Magnesium oxide, Percocet 10 03/12/2024: Patient seen at bedside. Patient does complain of left-sided flank pain with bruise present. Patient has crackles on auscultation. Complains of sore throat and shortness of breath. 03/13/25: Patient seen at bedside. Patient does complain of left-sided flank pain with bruise unchanged. Patient has crackles on auscultation, complains of shortness of the breath is on 2 L oxygen. Pending V/Q scan. Objective vital signs Vital Sign Date Time Temp Pulse Resp B/P (MAP) Pulse Ox O2 Delivery O2 Flow Rate FiO2 03/13/25 06:13 109 16 100 03/13/25 06:07 Room Air 0.0 03/13/25 06:07 21 03/13/25 05:00 97.8 129/82 (98) 97.8 Total Intake and Output 03/12/25 03/12/25 03/13/25 15:00 23:00 07:00 Intake Total 180 ml 800 ml 950 ml Balance 180 ml 800 ml 950 ml medications Current Medications Medications Dose Ordered Sig/Katja Route Start Time Stop Time Status Last Admin Dose Admin Ceftriaxone Sodium 50 ml @ 100 mls/hr Q24H IV 03/12/25 00:00 03/13/25 00:39 100 MLS/HR Dextrose 50 ml UD PRN IV 03/11/25 20:15 Atorvastatin Calcium 40 mg HS PO 03/11/25 22:00 03/12/25 21:13 40 MG Doxycycline Hyclate 100 ml @ 50 mls/hr Q12H IV 03/11/25 23:45 03/13/25 02:15 50 MLS/HR Diagnostic Test (Pha) 1 strip ACHS 03/12/25 07:00 03/13/25 06:48 1 STRIP Insulin Human Regular AC SC 03/12/25 07:00 03/13/25 06:58 3 UNITS Dextrose 50 ml UD PRN IV 03/12/25 01:00 Enoxaparin Sodium 40 mg DAILY SC 03/12/25 10:00 03/12/25 09:50 40 MG Aspirin 81 mg DAILY PO 03/12/25 10:00 03/12/25 09:49 81 MG Albuterol 2.5 mg Q6HR NEB 03/12/25 12:00 03/13/25 06:07 2.5 MG Ipratropium [place] 0.5 mg Q6HR NEB 03/12/25 12:00 03/13/25 06:07 0.5 MG Pantoprazole Sodium 40 mg DAILY@0600 PO 03/13/25 06:00 03/13/25 06:47 40 MG Furosemide 40 mg DAILY IV 03/13/25 10:00 Insulin Glargine 20 units HS SC 03/12/25 22:00 03/12/25 21:21 20 UNITS Prednisone 40 mg DAILY PO 03/13/25 10:00 Oxycodone/ Acetaminophen 2 tab TID PO 03/12/25 22:00 03/13/25 06:48 2 TAB Duloxetine HCl 60 mg DAILY PO 03/13/25 10:00 Quetiapine Fumarate 100 mg HS PO 03/12/25 22:00 03/12/25 21:14 100 MG Examination General: Patient alert and oriented in person, place and time. Patient following commands. HEENT: Normocephalic, atraumatic, moist mucous membranes, JVD elevated Respiratory/pulmonary: bilateral crackles, expiratory wheezes Cardiovascular: Normal heart sounds S1 and S2 with no associated murmurs Abdomen: Abdomen nondistended, there is no pain to palpation in any of the abdominal quadrants, no palpable masses. Morbid obesity Extremities: There is no peripheral edema present at the lower extremities. Peripheral Pulses: 3+ Radial (R). 3+ Radial (L). 3+ Dorsalis pedis (R). 3+ Dorsalis pedis(L) Skin: left flank bruise not increasing in size Neurological: Intact cranial nerves with no focal neurologic deficits, right side weakness in right upper and lower extremity laboratory and microbiology Laboratory Tests 03/13/25 05:42 Test 03/13/25 05:42 Range/Units Serum Glucose 167 H 74-106 mg/dL Microbiology Date/Time Source Procedure Growth Status 03/12/25 10:00 Nose MRSA Screen - Final Complete 03/11/25 17:40 Voided Urine Urine Culture - Preliminary Resulted 03/11/25 16:50 Blood Blood Culture - Preliminary NO GROWTH AFTER 24 HOURS OF INCUBATION. Resulted Problem List/Assessment/Plan Problem List/Assessment/Plan # Acute hypoxic respiratory failure due to COPD exacerbation # COPD exacerbation # Community Acquired Pneumonia Gram positive/Negative # ruled out DVT -ipratropium/albuterol p.r.n. -Methylprednisolone 40 mg b.i.d. IV, switch to oral prednisone tomorrow -Culture including sputum culture and blood culture -IV ceftriaxone and doxycycline -MRSA screen -CT angio chest and lower extremity Doppler - wells score 3 - V/Q scan pending # left flank bruise -CT scan showed No acute abdominopelvic abnormality. 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 # history of stroke -Low dose Lovenox 40mg SC daily -Aspirin, atorvastatin # diabetes mellitus type 2 Keep blood glucose between 140-180 Accu-Cheks q.6/a.c. HS Sliding scale insulin # possible obstructive sleep apnea - BiPAP at night # questionable CHF Echo - LV EF IS 65% AND IS NORMAL IV Lasix Resume home meds # Hypertension Resume home med # morbid obesity BMI 50.5 - patient counseled on diet, lifestyle modifications PPI prophylaxis: Protonix DVT prophylaxis: Lovenox Diabetic diet: Consistent carbohydrate Goals of care addressed with the patient for more than 27 minutes: Full code status Case discussed with Dr. Yen , patient and nurse Plan discussed with: Patient My Orders My Orders Orders - MAYO CONRAD Procedure Category Date Status Time Discontinue Tele JONATHAN 03/12/25 In Process 12:11 Transfer Orders XFER 03/12/25 Transmitted 12:11 Visit Coding STANDARD RES Billing Provider: LAWANDA YEN MD Date of Service if different f: Mar 13, 2025 Common Visit Codes: [id number] INP/OBS CARE(HIGH) MAYO CONRAD Mar 13, 2025 07:57 LAWANDA YEN MD Mar 14, 2025 00:23
[2025-03-13] MEDS: FUROSEMIDE 40 MG/4 ML VIAL IV SCH (09:36)
[2025-03-13] MEDS: predniSONE 20 MG TAB PO SCH (09:37)
[2025-03-14] VITALS (17 sets, daily range): BP systolic 108–147; BP diastolic 74–96; PULSE 78–93; RESP 16–18; TEMP 96.1–98.8; O2SAT 90–100
[2025-03-14 09:21] LABS: Hematocrit 47.4 % (36.0-46.0); Hemoglobin 15.7 g/dL (12.2-16.2); Mean Corpuscular Hemoglobin 31.8 pg (28.0-32.0); Mean Corpuscular Volume 95.9 fL (80.0-100.0); Nucleated Red Blood Cells % 0.0 %
[2025-03-14 09:30] LABS: Potassium 4.0 mmol/L (3.5-5.1)
[2025-03-14 09:31] LABS: Anion Gap 9 (5-15); Carbon Dioxide 29 mmol/L (20-31)
[2025-03-14 09:32] LABS: Calcium 9.7 mg/dL (8.7-10.4); Chloride 97 mmol/L (98-107); Sodium 135 mmol/L (136-145)
[2025-03-14 09:37] LABS: BUN/Creatinine Ratio 17.6 (10.0-20.0); Blood Urea Nitrogen 15 mg/dL (9-23); Glucose 172 mg/dL (74-106)
--- NOTE | 2025-03-14 17:50 | DVHPNRES ---
Progress Note Date Seen: Mar 14, 2025 Resident Creating Document: FIDEL STEIN RESIDENT Medical Necessity Reason Pt with a Central, PICC or Fol: No Subjective Review of Systems Patient seen and examined with the bedside No shortness of breath while resting on room air Cough and expectoration has a improved, no burning on micturition Objective vital signs Vital Sign Date Time Temp Pulse Resp B/P (MAP) Pulse Ox O2 Delivery O2 Flow Rate FiO2 03/14/25 16:53 98.3 88 18 147/96 (113) 90 98.3 03/14/25 13:03 Room Air* 0 21 Total Intake and Output 03/13/25 03/13/25 03/14/25 15:00 23:00 07:00 Intake Total 400 ml 1990 ml Balance 400 ml 1989 ml medications Current Medications Medications Dose Ordered Sig/Katja Route Start Time Stop Time Status Last Admin Dose Admin Ceftriaxone Sodium 50 ml @ 100 mls/hr Q24H IV 03/12/25 00:00 03/14/25 02:00 100 MLS/HR Dextrose 50 ml UD PRN IV 03/11/25 20:15 Atorvastatin Calcium 40 mg HS PO 03/11/25 22:00 03/13/25 21:31 40 MG Doxycycline Hyclate 100 ml @ 50 mls/hr Q12H IV 03/11/25 23:45 03/14/25 12:28 50 MLS/HR Diagnostic Test (Pha) 1 strip ACHS 03/12/25 07:00 03/14/25 11:30 1 STRIP Insulin Human Regular AC SC 03/12/25 07:00 03/14/25 12:30 3 UNITS Dextrose 50 ml UD PRN IV 03/12/25 01:00 Enoxaparin Sodium 40 mg DAILY SC 03/12/25 10:00 03/14/25 09:26 40 MG Aspirin 81 mg DAILY PO 03/12/25 10:00 03/14/25 09:26 81 MG Albuterol 2.5 mg Q6HR NEB 03/12/25 12:00 03/14/25 13:03 2.5 MG Ipratropium [place] 0.5 mg Q6HR NEB 03/12/25 12:00 03/14/25 13:03 0.5 MG Pantoprazole Sodium 40 mg DAILY@0600 PO 03/13/25 06:00 03/14/25 05:49 40 MG Furosemide 40 mg DAILY IV 03/13/25 10:00 03/14/25 09:34 40 MG Insulin Glargine 20 units HS SC 03/12/25 22:00 03/13/25 21:35 20 UNITS Prednisone 40 mg DAILY PO 03/13/25 10:00 03/14/25 09:26 40 MG Oxycodone/ Acetaminophen 2 tab TID PO 03/12/25 22:00 03/14/25 14:51 2 TAB Duloxetine HCl 60 mg DAILY PO 03/13/25 10:00 03/14/25 09:26 60 MG Quetiapine Fumarate 100 mg HS PO 03/12/25 22:00 03/13/25 21:31 100 MG Examination Skin - Patients skin is warm and dry. HEENT - normocephalic, atraumatic, moist mucous membranes. Neck - full ROM, no LAD, no JVD Pulmonary - B/L clear breath sounds with a minimal expiratory wheezing cardiovascular - regular S1,S2 heard, no added sounds, no murmurs heard. peripheral pulses normal radial 2+, pedal 2+. GI - soft, nontender abdomen. no hepatospleenomegaly. Bowel sounds normoactive Neurological - Patient is A/O X 4 . Right-sided weakness, no facial droop, normal speech, no tremor, no sensory deficiets. laboratory and microbiology Laboratory Tests 03/14/25 08:42 Test 03/14/25 08:42 Range/Units Serum Glucose 172 H 74-106 mg/dL Microbiology Date/Time Source Procedure Growth Status 03/12/25 10:00 Nose MRSA Screen - Final Complete 03/11/25 17:40 Voided Urine Urine Culture - Final Complete 03/11/25 16:50 Blood Blood Culture - Preliminary NO GROWTH AFTER 72 HOURS OF INCUBATION. Resulted Problem List/Assessment/Plan Problem List/Assessment/Plan # Acute hypoxic respiratory failure due to COPD exacerbation # Possible pneumonia/bronchitis # rule out PE # possible obstructive sleep apnea # questionable CHF # Hypertensive heart disease - duo nebs - prednisolone - IV ceftriaxone and doxycycline - CT angio showed no central pulmonary emboli, segmental, subsegmental limited evaluation, V/Q scan ordered - low-dose Lasix - BiPAP at night - maintain oxygen 88-92% - be evaluation # left flank bruise -CT scan showed No acute abdominopelvic abnormality. 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 # history of stroke -Low dose Lovenox 40mg SC daily -Aspirin, atorvastatin # uncontrolled diabetes mellitus type 2 with hyperglycemia Keep blood glucose between 140-180 Accu-Cheks q.6/a.c. HS Sliding scale insulin # morbid obesity BMI 50.5 - patient counseled on diet, lifestyle modifications PPI prophylaxis: Protonix DVT prophylaxis: Lovenox Diabetic diet: Consistent carbohydrate Goals of care addressed with the patient for more than 23 minutes: Full code status Case discussed with Dr. Yen , patient and nurse Plan discussed with: Patient, Other (RN) My Orders My Orders Orders - FIDEL STEIN Procedure Category Date Status Time Pt Request For Service PT 03/14/25 Logged 10:27 Visit Coding STANDARD RES Billing Provider: LAWANDA YEN MD Date of Service if different f: Mar 14, 2025 Common Visit Codes: [id number] INP/OBS CARE(HIGH) FIDEL STEIN RESIDENT Mar 14, 2025 17:50 LAWANDA YEN MD Mar 14, 2025 21:56
[2025-03-15] VITALS (15 sets, daily range): BP systolic 121–141; BP diastolic 61–96; PULSE 78–94; RESP 16–18; TEMP 36.6; O2SAT 93–100
[2025-03-15 06:14] LABS: Anion Gap 9 (5-15); Carbon Dioxide 28 mmol/L (20-31); Chloride 99 mmol/L (98-107); Potassium 4.1 mmol/L (3.5-5.1); Sodium 136 mmol/L (136-145)
[2025-03-15 06:15] LABS: Calcium 9.3 mg/dL (8.7-10.4)
[2025-03-15 06:20] LABS: BUN/Creatinine Ratio 24.7 (10.0-20.0); Blood Urea Nitrogen 21 mg/dL (9-23)
[2025-03-15 06:27] LABS: Glucose 136 mg/dL (74-106)
[2025-03-15] MEDS: FUROSEMIDE 40 MG/4 ML VIAL IV SCH (09:35)
--- NOTE | 2025-03-15 11:41 | DVHDSRES ---
Discharge Summary Date of Admission Resident Creating Document: YARELI DUCKWORTH RESIDENT Mar 11, 2025 at 19:33 Date of Discharge: Mar 15, 2025 Admitting Diagnosis Acute Respiratory Distress Wounds: No wounds Labs/Diagnostic Data: Laboratory Results Test 03/15/25 06:18 03/15/25 05:16 03/14/25 08:42 03/12/25 05:17 POC Glucose 132 mg/dl (70-106) Sodium Level 136 mmol/L (136-145) Potassium Level 4.1 mmol/L (3.5-5.1) Chloride Level 99 mmol/L (98-107) Carbon Dioxide Level 28 mmol/L (20-31) Anion Gap 9 (5-15) Blood Urea Nitrogen 21 mg/dL (9-23) Creatinine 0.85 mg/dL (0.550-1.02) Glomerular Filtration Rate Calc 76 mL/min (>90) BUN/Creatinine Ratio 24.7 (10.0-20.0) Serum Glucose 136 mg/dL (74-106) Calcium Level 9.3 mg/dL (8.7-10.4) White Blood Count 10.5 10^3/uL (4.4-10.8) Red Blood Count 4.94 10^6/uL (4.0-5.20) Hemoglobin 15.7 g/dL (12.2-16.2) Hematocrit 47.4 % (36.0-46.0) Mean Corpuscular Volume 95.9 fL (80.0-100.0) Mean Corpuscular Hemoglobin 31.8 pg (28.0-32.0) Mean Corpuscular Hemoglobin Concent 33.2 g/dL (32.0-36.0) Red Cell Distribution Width 13.9 % (11.8-14.3) Platelet Count 241 10^3/uL (140-450) Mean Platelet Volume 6.7 fL (6.9-10.8) Neutrophils (%) (Auto) 65.7 % (37.0-80.0) Lymphocytes (%) (Auto) 27.3 % (10.0-50.0) Monocytes (%) (Auto) 6.5 % (0.0-12.0) Eosinophils (%) (Auto) 0.3 % (0.0-7.0) Basophils (%) (Auto) 0.2 % (0.0-2.0) Neutrophils # (Auto) 6.9 10 ^3/uL (1.6-8.6) Lymphocytes # (Auto) 2.9 10 ^3/uL (0.4-5.4) Monocytes # (Auto) 0.7 10 ^3/uL (0-1.3) Eosinophils # (Auto) 0 10 ^3/uL (0-0.8) Basophils # (Auto) 0 10 ^3/uL (0-0.2) Nucleated Red Blood Cells 0.0 % Prothrombin Time 11.2 sec (9.3-11.8) Prothrombin Time INR 1.06 (0.9-1.15) Activated Partial Thromboplast Time 31.5 SEC (24.5-34.5) Hemoglobin A1c 8.0 % A1C (<5.7) Magnesium Level 2.3 mg/dL (1.6-2.6) Total Bilirubin 0.4 mg/dL (0.2-1.0) Aspartate Amino Transferase (AST) 14 U/L (13-40) Alanine Aminotransferase (ALT) 20 U/L (7-40) Alkaline Phosphatase 73 U/L (46-116) Total Protein 7.4 g/dL (5.7-8.2) Albumin 4.5 g/dL (3.2-4.8) Test 03/11/25 19:48 03/11/25 18:05 03/11/25 17:40 03/11/25 16:34 D-Dimer, Quantitative 1.71 mg/L FEU (0.0-0.49) Direct Bilirubin 0.2 mg/dL (<0.3) Troponin I High Sensitivity 3 ng/L (</=34) B-Type Natriuretic Peptide 5.47 pg/mL (0-100) Lipase 27 U/L (12-53) Influenza Type A Antigen Negative (Negative) Influenza Type B Antigen Negative (Negative) SARS-CoV-2 Antigen (Rapid) Negative (NEGATIVE) Urine Color Light-brown (Yellow) Urine Clarity Ex.turbid (Clear) Urine pH 7.0 (5.0-9.0) Urine Specific [facility] 1.022 (1.001-1.035) Urine Protein Trace (Negative) Urine Ketones Negative (Negative) Urine Blood 1+ /uL (Negative) Urine Nitrite Negative (Negative) Urine Bilirubin Negative (Negative) Urine Urobilinogen Normal mg/dL (Negative) Urine Leukocyte Esterase 3+ /uL (Negative) Urine RBC 124 /hpf (0 - 4) Urine WBC Clumps Present /hpf (None Seen) Urine Microscopic WBC 1400 /HPF (0-5) Urine Squamous Epithelial Cells Few /hpf (<5) Urine Bacteria None seen /hpf (None Seen) Urine Yeast (Budding) Loaded /hpf (None Seen) Urine Glucose 4+ mg/dL (Normal) Urine Opiates Screen Neg (NEGATIVE) Urine Fentanyl Screen Neg (NEGATIVE) Urine Barbiturates Screen Neg (NEGATIVE) Urine Phencyclidine Screen Neg (NEGATIVE) Urine Amphetamines Screen Neg (NEGATIVE) Urine Benzodiazepines Screen Neg (NEGATIVE) Urine Cocaine Screen Neg (NEGATIVE) Urine Cannabinoids Screen Neg (NEGATIVE) Lactic Acid Level 1.2 mmol/L (0.4-2.0) Other Laboratory Tests 03/15/25 05:16 03/14/25 08:42 Brief Hx & Hospital Course: Ms. Del Toro is a 64-year-old female with past medical history of asthma, COPD, CVA in 2019 with right-sided weakness, [id number] type 2 diabetes mellitus , hyperlipidemia, hypertension, questionable CHF, presented to [facility] with chief complaints of shortness of breath since 2 weeks. Patient states she was unable to lay flat for 2 weeks which was associated with increased cough with greenish-colored sputum, sore throat, febrile sensation, and diarrhea. Additionally referred chest pressure-like someone was sitting on her chest, pressure-like pain which was 5/10 in intensity, not radiating, squeezing type of pain. Patient also mentioned epigastric pain and left flank tenderness with bruise present which has increased in size over the past 4 days and lower urinary symptoms. Patient she stated she was exposed to a friend who recently had flu like symptoms. Despite using nebulizer 2 times every 15 minutes she did not improve, which prompted her to call EMS. On scene, she was found to be saturating 89% on room air. On evaluation in the ED, she was afebrile, normocardic, tachypneic, with BP within normal range, saturating adequately on 3L NC. Initial labs were significant for mild hyponatremia, hyperglycemia, elevated D-dimer, and UA significant for UTI. Chest xray show mild pulmonary vascular congestion. She was given breathing treatments, IV steroids, IV lasix, and IV antibiotics. She was admitted for further work up and monitoring. On admission,due to left flank bruising Abdominal CT was ordered which showed no acute intracranial abnormality. Lower extremity doppler, CTA,a dn VQ scan ruled out DVT and PE, however showed moderate pulmonary artery enlargement. Due to suspicion of possible MARTIN, BiPAP trial at night was started. Sputum and blood cultures show no significant results. Urine culture with signs of possible contamination. The patient has progressed favorably. On evaluation today, she is well, states she tried the BiPAP for 2 hours the night before. Denies any shortness of breath, chest pain, dizziness, fever, nausea, vomiting, cough, or palpitations. Labs are stable. She is considered stable for discharge home with oral prednisone and antibiotics. Medications, treatment regimen, and possible side effects have been thoroughly explained. All questions have been answered and concerns addressed. She has been scheduled for a follow up appointment in the discharge clinic. Additionally she will schedule appointment with her PCP for referral to pulmonology for PFTs and sleep study. Physical Exam General: The patient alert and oriented in person place and time. Patient following commands HEENT: Normocephalic, atraumatic, normal reactive pupils, EOM intact, pink conjunctiva, pink moist mucous membrane Respiratory/pulmonary: Bilateral chest expansion, no pain on palpation of chest wall, clear lungs bilaterally, vesicular murmurs present in almost all lung armas, minor wheezing heard in lower lung armas Cardiovascular: Normal RRR, normal S1 and S2, no murmurs Abdomen: Obese, abdomen nondistended, normal bowel sounds, soft, there is no pain to palpation in any of the abdominal quadrants, no palpable masses. Extremities: No deformities, there is no peripheral edema present at the lower extremities, normal pulses Skin: No rashes or pruritus, there is no sacral edema present at this time. Neurological: Intact cranial nerves with no focal neurologic deficits Case discussed with Dr. Pelayo Goals of care and discharge planning discussed with the patient for over 25 minutes. Operations or Procedures CHEST RADIOGRAPH INDICATION: sob TECHNIQUE: Single frontal view of the chest was obtained COMPARISON: None FINDINGS: Lines and Tubes: None Lungs: No focal consolidation. Mild interstitial prominence. Pleura: No effusion. No pneumothorax. Cardiomediastinal contours: borderline cardiomegaly Bones: No acute osseous abnormality. IMPRESSION: Mild pulmonary vascular congestion. EXAM: CT CT AB PEL WO CON-NO ORAL OR IV HISTORY: flank tendernesws COMPARISON STUDY: None TECHNIQUE: Multidetector CT of the abdomen and pelvis was performed from lung bases to pubic symphysis. Imaging was performed without IV contrast. Axial, coronal, and sagittal multiplanar reformats were obtained from the axial data set by the technologist. RADIATION DOSE: CTDI vol 27.9 mGy. DLP 1406.07 mGy.cm FINDINGS: Limited evaluation of the solid organs in the absence of IV contrast. Lungs: Dependent atelectatic changes. Liver: Unremarkable. Spleen: Unremarkable. Pancreas: Unremarkable. Gallbladder: Unremarkable. Adrenals: Unremarkable Kidneys: Unremarkable. Pelvic Viscera: Unremarkable. Vasculature: Mild atherosclerotic vascular calcifications. Retroperitoneum: Unremarkable. Bowel: Colonic diverticulosis without CT evidence of diverticulitis. No bowel obstruction. The appendix is normal. Musculoskeletal: Grade 1 anterolisthesis of L4 on L5. 3.0 cm mixed sclerotic density lesion within the right proximal femur. Soft tissues: Unremarkable IMPRESSION: 1. No acute abdominopelvic abnormality. 2. 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 3. Additional incidental findings as detailed. EXAM: CT HEAD WITHOUT CONTRAST INDICATION: headache COMPARISON: None TECHNIQUE: CT of the head without intravenous contrast. Radiation Dose Information: CT Dose: CTDI volume is 65 mGy. Dose-length product is 1150 mGy*cm The dose indicators for CT are the volume Computed Tomography (CT) Dose Index (CTDIvol) and the Dose Length Product (DLP), and are measured in units of mGy and mGy-cm, respectively. These indicators are not patient dose, but values generated from the CT scanner acquisition factors. The report includes radiation exposure data for exposures received during this examination. FINDINGS: The ventricles and sulci are normal in size and configuration for the patient's age. There is no mass-effect, hemorrhage, midline shift, or abnormal extra-axial fluid collection visible. No calvarial fracture. Left sphenoid sinus partial opacification. Mastoid air cells are clear. IMPRESSION: No acute intracranial hemorrhage or mass effect. EXAM: CT CT ANGIO CHEST CONTRAST Reason for study/ Clinical History: elevated ddimer COMPARISON STUDY: XY CHEST PORTABLE on DOS: 03/11/25 Exam Date: 03/11/2025 09:10 PM Radiation Dose Information: CT Dose: CTDI volume is 27.86 mGy. Dose-length product is 1015.35 mGy*cm TECHNIQUE: Multidetector CTA of the chest was performed of the chest with intravenous contrast. PULMONARY ANGIOGRAPHY PROTOCOL was utilized using a bolus- tracking technique centered on the main pulmonary artery. Axial, coronal and sagittal multiplanar and MIP reformats were performed. FINDINGS: Lower neck: Unremarkable. Lungs and Pleura: No consolidation or suspicious pulmonary nodules. No pleural effusions. Bibasilar atelectasis. Lymph nodes: No mediastinal, hilar, or axillary lymphadenopathy. Cardiovascular and Mediastinum: No significant pericardial effusion. Scattered coronary calcifications. Pulmonary arteries: Limited evaluation for segmental and subsegmental arteries due to suboptimal opacification and motion degradation. No central pulmonary emboli. Enlarged main pulmonary artery suggestive of pulmonary arterial hypertension. Osseous and soft tissues: No suspicious osseous lesions. Multilevel degenerative changes of the thoracic spine. Old right rib fractures. Upper abdomen: No acute abnormality in the visualized upper abdomen. IMPRESSION: Limited evaluation for segmental and subsegmental arteries due to suboptimal opacification and motion degradation. No central pulmonary emboli. Enlarged main pulmonary artery suggestive of pulmonary arterial hypertension. Bilateral lower extremity venous duplex CLINICAL HISTORY: rule out dvt COMPARISON: None TECHNIQUE: Duplex Doppler evaluation of the deep venous systems of both lower extremities from the common femoral veins to the popliteal veins including color Doppler and spectral/pulsed waveform analysis was performed. FINDINGS: RIGHT SIDE: The common femoral vein demonstrates appropriate compressibility and waveform variability. There is compressibility/patency of the great saphenous vein at the proximal thigh. The femoral vein demonstrates appropriate compressibility and waveform variability. The deep femoral vein demonstrates appropriate compressibility and waveform variability. The popliteal vein demonstrates appropriate compressibility and waveform variability. There is normal compressibility at the tibioperoneal trunk. LEFT SIDE: The common femoral vein demonstrates appropriate compressibility and waveform variability. There is compressibility/patency of the great saphenous vein at the proximal thigh. The femoral vein demonstrates appropriate compressibility and waveform variability. The deep femoral vein demonstrates appropriate compressibility and waveform variability. The popliteal vein demonstrates appropriate compressibility and waveform variability. There is normal compressibility at the tibioperoneal trunk. IMPRESSION: No right or left femoropopliteal venous thrombosis. CHEST RADIOGRAPH Indication: sob Technique: Single frontal view of the chest was obtained COMPARISON: CT CT ANGIO CHEST CONTRAST on DOS: 03/11/25, XY CHEST PORTABLE on DOS: 03/11/25 FINDINGS: Lines and Tubes: None Lungs: Mild pulmonary vascular congestion. Interval improvement in aeration of the right lower lobe. Pleura: No effusion.No pneumothorax. Cardiomediastinal contours: Unremarkable Bones: Unremarkable IMPRESSION: Mild pulmonary vascular congestion. Interval improvement in aeration of the right lower lobe. NUCLEAR MEDICINE VENTILATION/PERFUSION LUNG SCAN. INDICATION: PULMONARY EMBOLISM, PAH, CTEPH COMPARISON: None TECHNIQUE: Following intravenous demonstration of 5.8 millicuries of technetium 99m MAA, and inhalation of 5.5 mCi of Xe 133 scintigrams were obtained in multiple projections of the lungs. FINDINGS: There is normal uptake of radionuclide on both the ventilation and perfusion portions of the examination. No mismatched perfusion defects are demonstrated. Uptake is normally homogeneous. IMPRESSION: Low probability for PE. EXAM: LIMITED Two-dimensional and M-mode echocardiogram with Doppler and color Doppler. Blood Pressure: 115/82 mmHg INDICATION SOB RISK FACTORS Obesity: Height: 5'1, Weight: 300 DIMENSIONS LVDd 3.6 (3.8-5.7cm) LA (2D) 4.7 (1.9-4.0cm) Aortic Root 2.6 (2.0- 3.7cm) LVDs 2.6 (2.5-4.0cm) LA (MM) (1.9-4.0cm) Aortic Cusp Exc 1.5 (1.5- 2.0cm) EF (%) 55.0 (55-70%) Rt. Atrium 2.2 (1.9-4.0cm) Asc. Aorta cm IVSd 0.8 (0.7-1.1cm) RV (D) (1.8-2.4cm) PWd 0.9 (0.7-1.1cm) Mitral Valve Mitral Mitral Stenosis E/A ratio 0.0 2D MVA cm2 Aortic Valve Aortic Valve Aortic Stenosis LVOT Diameter 2.0 (1.8-2.4cm) Doppler ONEYDA cm2 Other Information Quality : Technically Limited Rhythm : Technically limited study due to patient position.body habitus. PT unable to move or turn, talking on the phone during exam. Conclusion LV EF IS 65% AND IS NORMAL NORMAL VALVES NORMAL RV FUNCTION NO EFFUSION Condition at Discharge: Stable Final Diagnosis/Problems List Acute Hypoxic Respiratory Failure secondary to Acute COPD Exacerbation Possible pneumonia (gram +/gram -) Ruled out PE Possible obstructive sleep apnea Possible HFpEF, not exacerbated Hypertensive heart disease Complicated UTI Left flank equimosis History of stroke Uncontrolled diabetes mellitus type 2 with hyperglycemia Morbid obesity BMI 50.5 Discharge Disposition: Home Discharge Instruct/Medications Diet: Cardiac 2g Na,low cholest Activity: No Restrictions, As Tolerated Follow Up/Referral: Follow up in [place] clinic in 72 hours Follow up with PCP in within the next week for referral to Pulmonology for PFTs and Sleep Study Medications: Per EMR Scheduled Albuterol Sulfate (Ventolin Mdi), 90 MCG IN PRN Cephalexin (Keflex Capsule), 250 MG PO Q6HR Doxycycline Monohydrate (Doxycycline Monohydrate), 1 CAP PO BID Ipratropium [place] Hfa (Atrovent Hfa), 17 MCG IN DAILY Prednisone (Prednisone), 40 MG PO DAILY Miscellaneous Medications [[place]], (Reported) [Oxycodone], (Reported) Discharge Statement: "Patient was advised to return to the ER or call 911 if any headaches, dizziness, shortness of breath, chest pain, abdominal pain, bleeding, fevers, or worsening of medical condition. Patient was counseled about treatment plan, medications, possible side effects, patientverbalized understanding. All questions were answered to the best of my ability. This discharge took greater then 30 minutes in planning, reviewing documentation, counseling the patient, and discussing with other team members." ASSESSMENT ASSESSMENT Assessment Acute Hypoxic Respiratory Failure secondary to Acute COPD Exacerbation Visit Coding STANDARD RES Billing Provider: REINALDO PELAYO MD Date of Service if different f: Mar 15, 2025 Common Visit Codes: 99997-RYB/OBS DISCH DAY >30min YARELI DUCKWORTH RESIDENT Mar 15, 2025 11:41 REINALDO PELAYO MD Mar 17, 2025 15:14
[2025-03-15] MEDS ORDERED: DOXY1CAP57 PO (12:01)
[2025-03-15] MEDS ORDERED: PRED20TA2 PO (12:01)
[2025-03-15] MEDS ORDERED: CEPH250C PO (12:01)
[2025-03-15] MEDS ORDERED: ALBUAER3 IN (12:04)
[2025-03-15] MEDS ORDERED: IPRIH IN (12:04)
--- NOTE | 2025-03-15 14:10 | DVH ---
NUCLEAR MEDICINE VENTILATION/PERFUSION LUNG SCAN. INDICATION: PULMONARY EMBOLISM, PAH, CTEPH COMPARISON: None TECHNIQUE: Following intravenous demonstration of 5.8 millicuries of technetium 99m MAA, and inhalation of 5.5 mCi of Xe 133 scintigrams were obtained in multiple projections of the lungs. FINDINGS: There is normal uptake of radionuclide on both the ventilation and perfusion portions of the examination. No mismatched perfusion defects are demonstrated. Uptake is normally homogeneous. IMPRESSION: Low probability for PE.
== END 2025-03-15 17:30 | disposition home health service (06) | DRG 720 ==
LOC: EDBD 16:13 → ER 16:13 → OVERFLOW 19:33 → TELE-WESTW 21:28 → WEST WING 03-13 04:34
PROVIDERS: ADMIT Student in an Organized Health Care Education/Training Program; ATTEND Student in an Organized Health Care Education/Training Program
PROC: 5A09357 Assistance with Respiratory Ventilation, Less than 24 Consecutive Hours, Continuous Positive Airway Pressure (ICD-10-PCS; principal; 2025-03-12)
PROC: 5A09357 Assistance with Respiratory Ventilation, Less than 24 Consecutive Hours, Continuous Positive Airway Pressure (ICD-10-PCS; 2025-03-13)
DX: A41.50 Gram-negative sepsis, unspecified (principal); J96.01 Acute respiratory failure with hypoxia; J15.69 Pneumonia due to other Gram-negative bacteria; J15.9 Unspecified bacterial pneumonia; I11.0 Hypertensive heart disease with heart failure; I50.32 Chronic diastolic (congestive) heart failure; J44.0 Chronic obstructive pulmonary disease with (acute) lower respiratory infection; Z68.43 Body mass index [BMI] 50.0-59.9, adult; E11.65 Type 2 diabetes mellitus with hyperglycemia; J44.1 Chronic obstructive pulmonary disease with (acute) exacerbation; G47.33 Obstructive sleep apnea (adult) (pediatric); F17.210 Nicotine dependence, cigarettes, uncomplicated; E78.5 Hyperlipidemia, unspecified; E66.01 Morbid (severe) obesity due to excess calories; Z83.3 Family history of diabetes mellitus; Z86.73 Personal history of transient ischemic attack (TIA), and cerebral infarction without residual deficits; Z74.01 Bed confinement status; Z79.899 Other long term (current) drug therapy
CPT/HCPCS: 36415; 70450; 71045; 71275; 74176; 78582; 80048; 80053; 80076; 80307; 81001; 82565; 82962; 83036; 83605; 83690; 83735; 83880; 84484; 85025; 85379; 85610; 85730; 87040; 87070; 87077; 87081; 87086; 87205; 87426; 87804; 93005; 93306; 93970; 94640; 94644; 94660; 96365; 96375; 97163; 99291; G0378; J1815; J1956; J2405; J2470